=== PATIENT | male | born 2000 | race Caucasian/White ===

== ENCOUNTER 2020-06-06 11:08 | Emergency (ER) | payer OTHER, SELFPAY ==
[2020-06-06 11:09] VITALS: BP 132/68; PULSE 60; RESP 16; TEMP 36.6; O2SAT 98; BMI 25.5
--- NOTE | 2020-06-06 11:22 | ED.DCSUM_ITS ---
- ER Visit Summary Date of Service: 06/06/20 Chief Complaint: Laceration History of Present Illness: The patient is a [address] Dani Graham. Ports that today he tripped and hit the left side of his face on a table. No loss of consciousness. Complains of pain his face is 3-10 severity. He is unsu re when his last tetanus shot was. Patient denies any other injuries. No neck, back, shoulder, wrist, or hip pain. Physical Examination: Vitals: Stable. Afebrile. Head: 1.5 cm laceration to the lateral portion of the left maxilla. 2 cm laceration to his left earlobe. This is not through and through. There is no involvement of the cartilage. Neck: No vertebral tenderness. Full ROM without difficulty. Cleared by NEXUS criteria. Back: No vertebral tenderness. General: A&O x 3. NAD. Cardiovascular exam: Regular rate and rhythm, no murmur, rub or gallop. Respiratory exam: Chest nontender. No crepitus. Clear to auscultation bilaterally. No wheezes or stridor. Abdominal exam: Soft, nontender, nondistended, normal bowel sounds. No pain in RUQ or LUQ specifically. No peritoneal signs. Extremity: Atraumatic. No pain with range of motion. Emergency Department Course and Treatment: Patient had his tetanus updated. He refused pain medications. He had his wound anesthetized and repaired. He tolerated this well. Treatment Plan: Patient be discharged instructions to follow-up Dr. Dani Graham III in 5 days for suture removal. Return to the emergency department for any worsening symptoms. Disposition: To home in improved and stable condition. Impression: 1. Fall. 2. Left cheek laceration, 1.5 cm, repaired. 3. Left earlobe laceration, 2 cm, repaired. Procedure note: Cheek laceration Wound was cleansed with chlorhexidine soap. Anesthetized with 1% lidocaine without epinephrine. Copiously irrigated with normal saline. Wound was explored there is no foreign material present. It was closed with 3 simple interrupted 6- 0 ethilon sutures. The patient tolerated it well. Procedure note: Earlobe laceration Wound was cleansed with chlorhexidine soap. Anesthetized with 1% lidocaine without epinephrine. Copiously irrigated with normal saline. Wound was explored there is no foreign material present. It was closed with 4 simple interrupted 6- 0 ethilon sutures. The patient tolerated it well. This note was generated with [employer] dictation software. It may contain incorrect words, spelling, and punctuation that were not noted in review of the chart prior to signing ED Disposition - Plan for ED Patient: Instructions: ED Laceration, Face: Stitches or Tape Referrals: Dani Graham III, MD [Primary Care Provider] - 5 Days for suture removal
[2020-06-06] MEDS: Diphth,Pertuss(Acell),Tet Vac 0.5 ML Vial IM (11:24)
[2020-06-06] MEDS: Lidocaine 1% (20 ml mdv) 20 ML Vial INFILT (11:25)
[2020-06-06 13:01] VITALS: RESP 18
== END 2020-06-06 13:01 | disposition home or self-care (01) ==
LOC: ED 11:43
PROVIDERS: Emergency Provider Emergency Medicine; PCP Family Medicine
DX: S01.412A Laceration without foreign body of left cheek and temporomandibular area, initial encounter (principal); S01.312A Laceration without foreign body of left ear, initial encounter; Z23 Encounter for immunization; W01.190A Fall on same level from slipping, tripping and stumbling with subsequent striking against furniture, initial encounter; Y93.01 Activity, walking, marching and hiking; Y92.9 Unspecified place or not applicable; Y99.9 Unspecified external cause status
CPT/HCPCS: 12013; 90715; 99283